=== PATIENT | female | born 1975 | race Hispanic/Latino ===

== ENCOUNTER 2018-10-25 18:31 | Emergency (ER) | payer OTHER ==
[~2018-10-25] VITALS: Ht 154.9 cm; Wt 77.1 kg
[2018-10-25] MEDS ORDERED: ACETAMIN/BUTALBITAL/CAFFEINE TAB PO ONE (19:15)
[2018-10-25] MEDS ORDERED: SODIUM CHLORIDE 0.9% 1000ML 1,000 ML IV ONE (19:15)
[2018-10-25] MEDS ORDERED: ONDANSETRON HCL INJ 2MG/ML 2ML 2 MG/ML VIAL IV ONE (19:15)
[2018-10-25 19:38] LABS: BASOPHILS % 0.2 % (0.0-1.0); EOSINOPHILS % 0.1 % (0.0-6.0); HEMATOCRIT 39.9 % (34.2-44.1); HEMOGLOBIN 13.6 g/dL (12.0-16.0); LYMPHOCYTES # (AUTO) 2.1 (1.0-3.2); MEAN CORPUSCULAR HGB CONC 34.1 g/dL (31-35); MEAN CORPUSCULAR VOLUME 90.9 fL (81-99); MONOCYTES # (AUTO) 1.2 (0.2-0.8); MONOCYTES % 6.8 % (4.4-11.3); NEUTROPHILS # (AUTO) 14.3 (2.1-6.9); NEUTROPHILS % 80.3 % (38.7-80.0); PLATELET COUNT 386 x10e3/uL (140-360); RED BLOOD COUNT 4.39 x10e6/uL (3.6-5.1); RED CELL DISTRIBUTION WIDTH 12.6 % (11.7-14.4)
[2018-10-25 19:39] LABS: CLARITY,URINE CLEAR (CLEAR); COLOR,URINE COLORLESS (YELLOW); LEUKOCYTE ESTERASE ,URINE NEGATIVE (NEGATIVE); NITRITE,URINE NEGATIVE (NEGATIVE); PROTEIN,URINE DIPSTICK NEGATIVE (NEGATIVE); URINE UROBILINOGEN 0.2 mg/dL (0.2 - 1)
[2018-10-25 19:40] LABS: BILIRUBIN,URINE NEGATIVE (NEGATIVE); KETONES,URINE NEGATIVE (NEGATIVE)
[2018-10-25 19:51] LABS: BACTERIA,URINE MODERATE /HPF; EPITHELIAL CELLS,URINE FEW /LPF
[2018-10-25 19:55] LABS: ALANINE AMINOTRANSFERASE 15 IU/L (0-55); ALBUMIN 3.7 g/dL (3.5-5.0); ALBUMIN/GLOBULIN RATIO 1.2 (0.8-2.0); ALKALINE PHOSPHATASE 50 IU/L (40-150); ANION GAP 12.5 mmol/L (8-16); BLOOD UREA NITROGEN 14 mg/dL (7-26); BUN/CREATININE RATIO 17 (6-25); CALCIUM 8.7 mg/dL (8.4-10.2); CARBON DIOXIDE 23 mmol/L (22-29); CHLORIDE 100 mmol/L (98-107); CREATININE, SERUM 0.81 mg/dL (0.57-1.11); EST GLOMERULAR FILTRATION RATE > 60 ML/MIN (60-); GLUCOSE 101 mg/dL (74-118); POTASSIUM 3.5 mmol/L (3.5-5.1); SODIUM 132 mmol/L (136-145)
== END 2018-10-25 21:09 | disposition home or self-care (01) ==
LOC: ER 18:31
DX: R51 Headache (principal); G97.1 Other reaction to spinal and lumbar puncture; M54.9 Dorsalgia, unspecified; G89.29 Other chronic pain
CPT/HCPCS: 36415; 80053; 81001; 85025; 99283; J2405

== ENCOUNTER 2019-01-29 14:37 | Emergency (ER) | payer OTHER ==
[~2019-01-29] VITALS: Ht 154.9 cm; Wt 77.3 kg
[2019-01-29] MEDS ORDERED: KETOROLAC TROMETHAMINE 30 MG/ML VIAL IV ONE (14:51)
[2019-01-29] MEDS ORDERED: IOPAMIDOL 370 MG/ML 200 ML INFUS..BTL INJ ONE (15:00)
[2019-01-29] MEDS ORDERED: KETOROLAC TROMETHAMINE 30 MG/ML VIAL ONE (15:09)
[2019-01-29] MEDS ORDERED: MORPHINE SULFATE 2 MG/ML SYR 1ML IV STA (15:40)
[2019-01-29] MEDS ORDERED: MORPHINE SULFATE INJ 4 MG/ML INJ 1ML IV ONE (15:45)
[2019-01-29] MEDS ORDERED: MORPHINE SULFATE INJ 4 MG/ML INJ 1ML ONE (15:55)
--- NOTE | 2019-01-29 16:22 | Diagnostic Imaging Report ---
EXAM: CT Abdomen and Pelvis WITH intravenous contrast INDICATION: Abdominal pain COMPARISON: None. TECHNIQUE: Abdomen and pelvis were scanned utilizing a multidetector helical scanner from the lung base to the pubic symphysis after administration of IV contrast. Coronal and sagittal reformations were obtained. Routine protocol was performed. Scan was performed during portal venous phase. IV CONTRAST: 100mL of Isovue 370 ORAL CONTRAST: Water RADIATION DOSE: Total DLP: 771.7 mGy*cm Dose modulation, iterative reconstruction, and/or weight based adjustment of the mA/kV was utilized to reduce the radiation dose to as low as reasonably achievable. FINDINGS: LOWER THORAX: Normal. HEPATOBILIARY: No focal liver lesion. No biliary ductal dilation. Status post cholecystectomy. SPLEEN: No splenomegaly. PANCREAS: No focal masses or ductal dilatation. ADRENALS: No adrenal nodules. KIDNEYS/URETERS: No hydronephrosis, stones, or solid mass lesions. PELVIC ORGANS/BLADDER: Unremarkable. PERITONEUM / RETROPERITONEUM: No free air or fluid. LYMPH NODES: No lymphadenopathy. VESSELS: Minimal scattered atherosclerotic calcifications of the distal abdominal aorta. GI TRACT: Descending and sigmoid colon diverticulosis with a segment of wall thickening involving several diverticuli in the descending colon associated with adjacent pericolonic fat stranding and a small amount of nonfocal linear fluid. No free air or drainable diverticular abscess. BONES AND SOFT TISSUES: No acute fracture or dislocation. No suspicious lytic or blastic lesions. IMPRESSION: Acute uncomplicated diverticulitis. No free air or drainable articular abscess. Signed by: Garry Dennis MD on 01/29/2019 4:19 PM
[2019-01-29 16:47] VITALS: BP 116/71
== END 2019-01-29 16:57 | disposition home or self-care (01) ==
LOC: FSED 14:37
DX: R10.32 Left lower quadrant pain (principal); K57.32 Diverticulitis of large intestine without perforation or abscess without bleeding
CPT/HCPCS: 74177; 80048; 80076; 81003; 81025; 85025; 99284; J1885; J2270; Q9967

== ENCOUNTER 2024-07-04 11:56 | Emergency (ER) | payer BC, OTHER ==
[~2024-07-04] VITALS: Ht 154.9 cm; Wt 71.5 kg
[2024-07-04] MEDS ORDERED: LOSARTAN POTASS25 MG PO (12:12)
[2024-07-04] MEDS: ONDANSETRON HCL INJ 2MG/ML 2ML 2 MG/ML VIAL IV STA (12:48)
[2024-07-04] MEDS: SODIUM CHLORIDE 0.9% 1000ML 1,000 ML IV ONE (12:48)
[2024-07-04] MEDS: KETOROLAC TROMETHAMINE 30 MG/ML VIAL IV STA (12:49)
[2024-07-04] MEDS: METRONIDAZOLE 500MG/NS 100ML 100 ML IV ONE (14:41)
[2024-07-04] MEDS ORDERED: BACTRIM DS TAB1 EACH PO (14:46)
[2024-07-04] MEDS ORDERED: METRONIDAZOLE500 MG PO (14:47)
[2024-07-04] MEDS ORDERED: ONDANSETRON ODT4 MG PO (14:48)
[2024-07-04] MEDS ORDERED: PEPCID20 MG PO (14:49)
[2024-07-04] MEDS ORDERED: DICYCLOMINE HCL20 MG PO (14:51)
[2024-07-04 15:07] VITALS: PULSE 71; RESP 16; TEMP 98.1; O2SAT 99
== END 2024-07-04 15:13 | disposition home or self-care (01) ==
LOC: FSED 12:00
DX: R10.9 Unspecified abdominal pain (principal); K57.32 Diverticulitis of large intestine without perforation or abscess without bleeding; I70.0 Atherosclerosis of aorta; I10 Essential (primary) hypertension; R11.0 Nausea
CPT/HCPCS: 74176; 80053; 81003; 85025; 93005; 96374; 96375; 99284; J1885; J2405; J7030